=== PATIENT | female | born 1950 | race Caucasian/White ===

== ENCOUNTER 2019-02-08 01:15 | Emergency (ER) | payer MEDICAID ==
[~2019-02-08] VITALS: Ht 160 cm; Wt 106.4 kg
[~2019-02-08 01:15] MED LIST: BAYER CHEWABLE81 MG PO; DIOVAN320 MG PO; LIPITOR10 MG PO; NORVASC5 MG PO; OXYBUTYNIN CHLOR5 MG PO; TOPROL XL25 MG PO
[2019-02-08 01:19] VITALS: Ht 160 cm; Wt 106.4 kg
[2019-02-08 03:12] VITALS: BP 137/69
== END 2019-02-08 03:08 | disposition home or self-care (01) ==
LOC: D.ER 01:15
DX: S83.002A Unspecified subluxation of left patella, initial encounter (principal); X58.XXXA Exposure to other specified factors, initial encounter; Y93.89 Activity, other specified; Y92.89 Other specified places as the place of occurrence of the external cause